=== PATIENT | female | born 1955 | race Caucasian/White ===

== ENCOUNTER → 2018-05-31 | Outpatient (CLI) | payer OTHER ==
[~2018-05-31] MED LIST: ACCUNEB SO1.25 MG/1 INH; AEROECLIPSE II1 EACH MC; ALBUTEROL2.5 MG/0.5 INH; COLACE100 MG PO; DOXYCYCLINE 10100 MG PO; FOSAMAX 70 MG T70 MG PO; MINOCIN50 MG PO; MIRALAX17 GM PO; NORCO 5-325 TA1 EACH PO; PREDNISONE 10 M10 MG PO; PROAIR HFA8.5 GM INH; PROBIOTIC1 EAC1 PO; SINGULAIR 10 MG10 M1 PO; SPIRIVA INH; SYNTHROID100 MC1 PO; TYLENOL325 MG PO; XANAX 0.5 MG0.5 MG PO; ZOLOFT50 MG PO
== END ==
LOC: M.RAD 05-29 09:30
DX: Z12.31 Encounter for screening mammogram for malignant neoplasm of breast (principal)

== ENCOUNTER 2018-06-14 08:45 | Observation (INO) | payer OTHER ==
[~2018-06-14] VITALS: Ht 162.6 cm; Wt 66.7 kg
[~2018-06-14 08:45] MED LIST changes: -DOXYCYCLINE 10100 MG PO; -MINOCIN50 MG PO; -NORCO 5-325 TA1 EACH PO; -PROBIOTIC1 EAC1 PO; -SYNTHROID100 MC1 PO
[2018-06-14 10:30] VITALS: BP 169/95
[2018-06-14 11:16] LABS: HEMOGLOBIN 14.4 gm/dL (12.0-15.0); MCH 32.2 pg (26.0-34.0); MCHC 33.6 g/dL (28.0-37.0); MCV 95.9 fL (80.0-100.0); MPV 7.6 fl. (7.2-11.1); RBC 4.48 mil/uL (4.20-5.00); RDW-CV 12.6 % (10.5-14.5); WBC 6.1 thou/uL (4.0-11.0)
[2018-06-14 11:27] LABS: CALCIUM 9.1 mg/dL (8.5-10.1); CREATININE 0.5 mg/dL (0.6-1.3); POTASSIUM 4.4 mmol/L (3.5-5.1)
[2018-06-14 11:32] LABS: ALBUMIN 3.9 g/dL (3.4-5.0); TOTAL BILIRUBIN 0.4 mg/dL (<0.1-1.0); TOTAL PROTEIN 7.5 g/dL (6.4-8.2)
[2018-06-14 16:00] VITALS: BP 116/64
[2018-06-14 20:00] VITALS: BP 119/63
[2018-06-15 04:41] LABS: ABSOLUTE EOSINOPHILS 0.1 thou/uL (0.0-0.7); ABSOLUTE LYMPHOCYTES 1.2 thou/uL (0.8-5.3); ABSOLUTE MONOCYTES 0.5 thou/uL (0.0-1.2); ABSOLUTE NEUTROPHILS 3.4 thou/uL (1.6-8.1); BASOPHILS 0.6 %; EOSINOPHILS 2.1 %; HEMATOCRIT 37.8 % (37.0-47.0); HEMOGLOBIN 12.7 gm/dL (12.0-15.0); LYMPHOCYTES 22.7 %; MCH 32.2 pg (26.0-34.0); MCHC 33.5 g/dL (28.0-37.0); MCV 96.2 fL (80.0-100.0); MONOCYTES 9.6 %; MPV 7.6 fl. (7.2-11.1); NUCLEATED RBCS 0 /100WBC; PLATELET COUNT* 303 thou/uL (150-400); RBC 3.93 mil/uL (4.20-5.00); RDW-CV 12.7 % (10.5-14.5); WBC 5.2 thou/uL (4.0-11.0)
[2018-06-15 05:00] LABS: CALCIUM 8.6 mg/dL (8.5-10.1); CREATININE 0.6 mg/dL (0.6-1.3); POTASSIUM 4.5 mmol/L (3.5-5.1)
--- NOTE | 2018-06-15 05:26 | NUR ---
PT. PROGRESSING TOWARDS GOALS, HOPES TO BE DISCHARGED HOME TODAY. C/O PAIN THROUGHOUT SHIFT, HYDROCODONE GIVEN PER PRN ORDER, RELIEF OBTAINED. PT. VERY COOPERATIVE, PLEASANT. IV ANTIBIOTICS ADMINISTERED. VITAL SIGNS STABLE. DENIES NEEDS AT THIS TIME, CALL LIGHT IN REACH, WILL CONTINUE TO MONITOR.
[2018-06-15 07:40] VITALS: BP 141/73
--- NOTE | 2018-06-15 08:23 | CON ---
[address] [address] CONSULTATION Name: FIORDALIZABARBARA M Room: [address] M.R.#: [id number] Admission: 06/14/18 Attend Phys: Leobardo Terry MD Discharge: Date of : 53 Report #: [id number] THIS REPORT FOR: //name// CC: Leobardo Hackett Garland Ken Giraldonton DATE OF SERVICE: 06/14/2018 INFECTIOUS DISEASE CONSULTATION ATTENDING PHYSICIAN: Leobardo Terry MD REASON FOR EVALUATION: Left medial thigh inflammatory eruption with a likely component of cellulitis, skin and soft tissue infection. HISTORY OF PRESENT ILLNESS: Chart reviewed, the patient examined. This is a 62-year-old with a history of hypothyroidism, perhaps some COPD as well who believes she was bitten by a brown recluse spider. She actually did not see the spider, however, developed a painful site with some subcutaneous hemorrhage on medial aspect of her left thigh. This extended over days, became quite painful with some tissue necrosis. She did have some bullous lesions develop as well. She has not had systemic illness. Denies any fevers or chills. No pulmonary or gastrointestinal related complaints, had been started on antibiotics as an outpatient. ALLERGIES: LISTED TO SULFA. MEDICATIONS: Currently include vancomycin, enoxaparin, hydrocodone, albuterol, montelukast, alprazolam, pantoprazole, p.r.n. analgesics, antiemetics. PAST MEDICAL HISTORY: Above noted hypothyroidism. SOCIAL HISTORY: Former smoker. Regular ethanol use. FAMILY HISTORY: Noncontributory. REVIEW OF SYSTEMS: As above. PHYSICAL EXAMINATION: GENERAL: She is in iaze-cn-vfrwszvy distress. She is pleasant. She appears to be generally well nourished. VITAL SIGNS: Temperature 98.2, pulse 75, respirations 18, blood pressure 116/95. SKIN: Warm, dry, no rashes. HEENT: Otherwise, [place] [address] CONSULTATION Name: BARBARA MANCERA Room: [address] [facility].#: [id number] Admission: 06/14/18 Attend Phys: Leobardo Terry MD Discharge: Date of : 53 Report #: [id number] NECK: Supple. LUNGS: Clear to auscultation. HEART: Regular rate and rhythm without murmur. ABDOMEN: Soft, nontender. EXTREMITIES: Left medial thigh has several centimeters of basically evidence of what appeared to be skin necrosis. This is certainly consistent with a brown recluse spider envenomation with some rim of erythema. It is quite painful to touch. I do not appreciate any fluctuance or evidence of subcutaneous abscess. GENITOURINARY: Deferred. RECTAL: Deferred. LABORATORY DATA: Lactic acid 0.6. Electrolytes: Sodium 134, potassium 4.4, chloride 100, bicarb is 30, anion gap of 4, BUN and creatinine 10 and 0.5. LFTs unremarkable. Albumin of 3.9, total protein 7.5. Estimated GFR of 125. CBC: White count 6.1, H and H 14.4 and 43, platelets 357. ASSESSMENT: Left medial inflammatory process with central tissue necrosis and some hemorrhage, certainly consistent with a brown recluse spider bite with concern about complication of skin and soft tissue infection, agree with empiric antimicrobial therapy at this point, vancomycin should give us adequate Staphylococcus or Streptococcus coverage. I will see how she does clinically. At this point, Surgery has been evaluating. I suspect will need removal of the devitalized tissue and it may well be a timing issue. We will follow. <ELECTRONICALLY SIGNED> By: Rodrigo Neff MD 06/15/18 0823 1500 [id number] Neff MD /nt
[2018-06-15] MEDS ORDERED: NORCO 5-325 TA1 EACH PO (15:02)
[2018-06-15] MEDS ORDERED: MINOCIN50 MG PO (15:02)
[2018-06-15 15:03] VITALS: BP 141/73
--- NOTE | 2018-06-15 16:04 | NUR ---
FRANCISCAEINT A&OX4, RA, IV RIGHT FOREARM SALINE LOCK. IV DISCONTINUED CATHETER FULLY INTACT. UP AD TACOS, STEADY GIAT. SPIDER BITE TO LEFT THIGHT, D/C PHOTO TAKEN. DRESSING APPLIED. NO OTHER CONCERNS AT THIS TIME. REVIEWED DISCHARGE PAPERWORK, ALL QUESTIONS AND CONCERNS ANSWERED. PATIENT LEFT UNIT AT 1550 VIA W/C ALL BELONGINGS TAKEN WITH PATIENT. PERSCRIPTIONS CALLED IN TO [facility]. APPROPRIATE AND COOPORATIVE WITH CARE.
[2018-06-19] MEDS ORDERED: DOXYCYCLINE 10100 MG PO (15:17)
[2018-06-19] MEDS ORDERED: SYNTHROID100 MC1 PO (15:17)
[2018-06-22] MEDS ORDERED: PROBIOTIC1 EAC1 PO (09:42)
== END 2018-06-15 15:50 | disposition home or self-care (01) ==
LOC: M.WC 08:45 → M.3W 09:47
PROVIDERS: ADMIT Internal Medicine
DX: L03.116 Cellulitis of left lower limb (principal); J44.9 Chronic obstructive pulmonary disease, unspecified; R52 Pain, unspecified; E03.9 Hypothyroidism, unspecified; I96 Gangrene, not elsewhere classified; Z88.2 Allergy status to sulfonamides; Z79.899 Other long term (current) drug therapy; Z87.891 Personal history of nicotine dependence; Z72.89 Other problems related to lifestyle; Z98.890 Other specified postprocedural states

== ENCOUNTER → 2018-06-22 | Day surgery (SDC) | payer OTHER ==
[~2018-06-22] MED LIST changes: +DOXYCYCLINE 10100 MG PO; +MINOCIN50 MG PO; +NORCO 5-325 TA1 EACH PO; +PROBIOTIC1 EAC1 PO; +SYNTHROID100 MC1 PO
[2018-06-22 10:13] LABS: CALCIUM 9.5 mg/dL (8.5-10.1); CREATININE 0.7 mg/dL (0.6-1.3); POTASSIUM 3.9 mmol/L (3.5-5.1)
[2018-06-22 10:17] LABS: ALBUMIN 3.6 g/dL (3.4-5.0); TOTAL BILIRUBIN 0.4 mg/dL (<0.1-1.0); TOTAL PROTEIN 6.8 g/dL (6.4-8.2)
--- NOTE | 2018-06-22 17:03 | EKG ---
[place] [address] ELECTROCARDIOGRAM REPORT Name: BARBARA MANCERA Jeff Room: [facility]#: [id number] Admission: 06/22/18 Attend Phys: Agnes Eddy DO Discharge: Date of : 53 Report #: [id number] THIS REPORT FOR: //name// [facility] Test Date: 2018-06-22 Test Time: 09:46:04 Pat Name: BARBARA MANCERA Department: Room: Gender: F Group Worker: : 1955 Requested By: Agnes Eddy Order Number: [id number] Reading MD: Chris Goss Measurements Intervals Price Rate: 65 P: 13 ID: 128 QRS: 60 QRSD: 101 T: 38 QT: 410 QTc: 427 Interpretive Statements Sinus rhythm Compared to ECG 08/05/2014 10:57:41 Sinus tachycardia no longer present Atrial premature complex(es) no longer present Atrial abnormality no longer present ST (T wave) deviation no longer present Electronically Signed On 06-22-2018 17:03:18 HOP GROWER by Chris Goss [email or web address] <ELECTRONICALLY SIGNED> By: Chris Goss MD, FAC 06/22/18 1703 0946 Chris Goss MD, [facility] /EPI
--- NOTE | 2018-06-26 08:27 | OP ---
[address] [address] OPERATIVE REPORT Name: BARBARA MANCERA Room: [facility]#: [id number] Admission: 06/22/18 Attend Phys: Agnes Eddy DO Discharge: Date of : 53 Report #: [id number] THIS REPORT FOR: //name// CC: Agnes Palma Garland DATE OF SERVICE: 06/22/2018 PREOPERATIVE DIAGNOSIS: Left thigh eschar from spider bite. POSTOPERATIVE DIAGNOSIS: Left thigh eschar from spider bite. SURGEON: Agnes Eddy DO. COSURGEON: Angella Huertas, PGY-1. ANESTHESIA: General LMA and local. ESTIMATED BLOOD LOSS: 5 mL. DRAINS: None. SPECIMENS: Left thigh eschar which measured 8 x 4.5 x 3. Incision length was 8 cm. Depth of incision was muscle fascia. COMPLICATIONS: None. CONDITION: Stable. DISPOSITION: PACU to home. HISTORY OF PRESENT ILLNESS: The patient is a very pleasant 62-year-old female who was recently in the hospital after suffering a spider bite to the left thigh. The area was allowed to evolve and declare itself. She presented to my office with a well-defined eschar. We then consented her for excision of this area. Risks discussed included bleeding, infection, pain, scar formation, wound complications and risks of anesthesia. The patient understood these risks and elected to proceed. DESCRIPTION OF PROCEDURE: The patient was brought to the operating room. She was laid supine on the operating room table. SCDs were placed on bilateral lower extremities. Ancef was given in the perioperative period. General LMA anesthesia induced by anesthesia without difficulty. Left thigh was prepped and draped in standard sterile fashion. Timeout was performed to verify patient and procedure. A 20 mL of 0.5% Marcaine were injected in the area of the large eschar. An elliptical 8 cm incision was made around [place] [address] OPERATIVE REPORT Name: FIORDALIZABARBARA M Room: [facility].#: [id number] Admission: 06/22/18 Attend Phys: Agnes Eddy DO Discharge: Date of : 53 Report #: [id number] tissue was then dissected free using cautery. Final specimen measured 8 x 4.5 x 3 cm, depth of excision was muscle fascia. Specimen was then handed off. Wound was copiously irrigated. Hemostasis was assured. Wound was then closed in a layered fashion using deep and superficial stitches of 3-0 Vicryl in inverted interrupted fashion. Skin wound was closed with multiple interrupted mattress stitches of 3-0 nylon. A total of 30 mL of 0.5% Marcaine were used to anesthetize the wound. Wound was then cleansed and covered with a Prevena VAC. The patient was then allowed to awake from anesthesia, was extubated and transported to the recovery room with no further difficulties. Counts were correct x 2 at the conclusion of the case. <ELECTRONICALLY SIGNED> By: Agnes Eddy DO 06/26/18 0827 1211 [id number] Eddy DO /nt
--- NOTE | 2018-06-27 13:14 | PATH ---
[address] [address] PATHOLOGY RPT PROCEDURE Name: BARBARA MANCERA Room: [facility]#: [id number] Admission: 06/22/18 Date of : 53 Discharge: Report #: [id number] Path Case #: [id number] [facility] Accession Number: [id number] . 01 Material submitted: . LEFT THIGH ESCHAR . 01 Clinical history: . Brown recluse spider bite. . 02 Diagnosis: Left thigh eschar: - Skin and soft tissue with associated ulcer, necrosis, fat necrosis and acute and chronic inflammation. - Negative for malignancy. (MAP:[facility] 06/26/2018) QTP/06/26/2018 . 02 Electronically signed: . Sarthak Carlin MD, Pathologist NPI- [id number] . 01 Gross description: . Received in formalin labeled "Mancera, Barbara, left thigh eschar" is an ellipse of harrison-white skin and underlying yellow-harrison lobulated soft tissue measuring 8.1 x 5.0 x 2.7 cm. The skin surface displays a harrison-ogden ulcerated lesion measuring 6.2 x 3.3 cm. Upon sectioning, the cut surface deep to the lesion is yellow-harrison and irregular, up to a depth of 1.9 cm. A union representative section is submitted in cassette A1. ([facility]; 06/24/2018) SYC/SYC . 02 Pathologist provided ICD-10: L98.499, L08.9, I96 . 02 CPT . 467091 Specimen Comment: A courtesy copy of this report has been sent to Specimen Comment: [phone], . Specimen Comment: Report sent to / DR LANGE Specimen Comment: A duplicate report has been generated due to demographic updates. Performed at: [address] [facility], [place] [id number] MD Ken Zhang MD Phone: [phone] Performed at: [address] [id number] [place] [address] PATHOLOGY RPT PROCEDURE Name: BARBARA MANCERA Room: [facility]#: [id number] Admission: 06/22/18 Date of : 53 Discharge: Report #: [id number] Path Case #: [id number] MD Andrae Samuel MD Phone: [phone]
== END | disposition home or self-care (01) ==
LOC: M.SUR 06:46
PROVIDERS: Surgery
DX: S70.362A Insect bite (nonvenomous), left thigh, initial encounter (principal); J45.909 Unspecified asthma, uncomplicated; Z88.2 Allergy status to sulfonamides; Z79.899 Other long term (current) drug therapy; Z79.891 Long term (current) use of opiate analgesic; W57.XXXA Bitten or stung by nonvenomous insect and other nonvenomous arthropods, initial encounter; Y93.89 Activity, other specified; Y92.89 Other specified places as the place of occurrence of the external cause; Y99.8 Other external cause status

== ENCOUNTER → 2019-05-27 | Outpatient (CLI) | payer OTHER | LOC: M.RAD 09:50 | DX: Z12.31 Encounter for screening mammogram for malignant neoplasm of breast (principal) ==

== ENCOUNTER → 2020-05-25 | Outpatient (CLI) | payer OTHER | LOC: M.RAD 09:20 | PROVIDERS: ATTEND Family Medicine | DX: Z12.31 Encounter for screening mammogram for malignant neoplasm of breast (principal) ==

== ENCOUNTER → 2020-06-04 | Outpatient (CLI) | payer OTHER | LOC: M.RAD 14:00 | PROVIDERS: ATTEND Family Medicine | DX: M81.0 Age-related osteoporosis without current pathological fracture (principal); M85.80 Other specified disorders of bone density and structure, unspecified site ==

== ENCOUNTER → 2021-05-24 | Outpatient (CLI) | payer OTHER | LOC: M.RAD 11:30 | PROVIDERS: ATTEND Family Medicine | DX: Z12.31 Encounter for screening mammogram for malignant neoplasm of breast (principal) ==

== ENCOUNTER → 2021-07-05 | Outpatient (CLI) | payer OTHER | LOC: M.ULTRA 11:50 | PROVIDERS: ATTEND Family Medicine | DX: R26.2 Difficulty in walking, not elsewhere classified (principal); R20.0 Anesthesia of skin ==